=== PATIENT | male | born 1965 | race Caucasian/White ===

== ENCOUNTER → 2022-04-15 10:14 | Outpatient (CLI) | payer BC, SELFPAY ==
--- NOTE | ~2022-04-15 | MR_ITS ---
MRI of the lumbar spine Clinical History: Degenerative disc disease Technique: Axial T2-weighted images, and sagittal T1-weighted, T2-weighted, and T2 fat-sat images wer e acquired. Findings: There is no fracture or subluxation of the lumbar spine. Vertebral bodies maintain normal h eight and alignment. No focal bone marrow signal abnormality seen. At L1-L2, L2-L3, L3-L4, there is no disc bulge or herniation. No spinal canal stenosis or neural fora narciso narrowing at these levels. At L4-L5, there is minimal disc bulge with minimal facet joint degenerative change. No spinal canal s tenosis. There is minimal left neural foraminal narrowing. At L5-S1, there is a small central to left paracentral disc extrusion, superimposed upon a diffuse di sc bulge. There is mild facet arthropathy. No boo spinal canal stenosis. There is severe bilateral neural form foraminal compromise. Paravertebral soft tissues are unremarkable. Impression: Small disc extrusion superimposed upon disc bulge at L5-S1. Severe bilateral neural foraminal compromise at L5-S1. Reviewed, dictated and finalized at [facility]. GENERATOR Impression: Small disc extrusion superimposed upon disc bulge at L5-S1. Severe bilateral neural foraminal compromise at L5-S1.
== END ==
DX: M51.36 Other intervertebral disc degeneration, lumbar region (principal); M48.04 Spinal stenosis, thoracic region; M47.896 Other spondylosis, lumbar region; M51.27 Other intervertebral disc displacement, lumbosacral region
CPT/HCPCS: 72148